=== PATIENT | female | born 1975 | race Caucasian/White ===

== ENCOUNTER 2021-07-26 15:53 | Emergency (ER) | payer OTHER, SELFPAY ==
[2021-07-26 16:10] VITALS: BP 136/76; PULSE 77; RESP 20; TEMP 36.6; O2SAT 100
[2021-07-26 17:05] LABS: Bacteria Urine None Seen; RBC Urine None Seen (0-5/HPF)
[2021-07-26 17:12] LABS: Appearance Urine UA CLEAR; Bilirubin Urine UA NEGATIVE (NEGATIVE); Color Urine UA YELLOW; Glucose Urine UA NEGATIVE (Negative); Ketones Urine UA NEGATIVE (NEGATIVE); Leukocyte Esterase Urine UA TRACE (NEGATIVE); Nitrite Urine UA NEGATIVE (Negative); Occult Blood Urine UA NEGATIVE (Negative); Protein Urine UA NEGATIVE (Negative); Specific Gravity Urine UA <=1.005 (1.000-1.035); Urobilinogen Urine UA 0.2 E.U./dL (0.2)
[2021-07-26 17:23] LABS: Culture Indicated Urine Specimen Cultured; Squamous Epithelial Cell Urine 0-1 /HPF (0-5/HPF); WBC Urine 5-10/HPF (0-5/HPF)
--- NOTE | 2021-07-26 18:35 | ED.FEMALEGU ---
HPI - Female Genitourinary General Chief complaint: Urogenital-Female Stated complaint: UTI Time Seen by Provider: 07/26/21 16:01 Source: patient Mode of arrival: Ambulatory History of Present Illness HPI Narrative: 46-year-old female nonsmoker with noncontributory medical history presents with her in the chief complaint of about 1 week of painful urination with frequency and urgency. She denies any hematuria. She denies vaginal bleeding or discharge. She denies any fever, chills nor nausea or vomiting. She denies any back pain. She has tried drinking lots of water and cranberry juice but symptoms are persisting. She has had urinary tract infections in the past and this feels the same. Related Data Previous Rx's Medication Instructions Recorded cefuroxime axetil 500 mg tablet 500 mg PO BID #10 tab 07/26/21 Allergies Allergy/AdvReac Type Severity Reaction Status Date / Time Sulfa (Sulfonamide Allergy Unknown Unverified 03/05/18 12:35 Antibiotics) [SULFA (SULFONAMIDE ANTIBIOTICS)] Review of Systems Review of Systems Narrative: GENERAL: Denies chills, fatigue, malaise, fever, sweats. HEENT: Denies sinus pain, ear pain, sore throat, difficulty swallowing, dizziness. RESPIRATORY: Denies dyspnea, cough, wheezing, hemoptysis, sputum. CARDIOVASCULAR: Denies chest pain, palpitations, orthopnea, edema, GASTROINTESTINAL: Denies nausea, vomiting, abdominal pain, diarrhea, constipation, melena. : See HPI MUSCULOSKELETAL: denies weakness, joint pain, or bony pain SKIN: Denies rash, skin lesions, or other NEUROLOGIC: Denies weakness, headache, numbness, change in speech, confusion, seizures, incoordination. PSYCHIATRIC: No concerning psychosocial issues. 12 point review of systems is negative except for those stated above Exam Narrative Exam Narrative: GEN: AOx3 and in mild distress EYES: Pupils are equal, round, and reactive to light and accommodation. Extraoccular muscles are intact bilaterally. There is no subconjunctival hemorrhage or exudate. CHEST: Lungs are clear to auscultation bilaterally and free of wheezes, rales, or rhonchi. Heart rate is regular rhythm, there are no murmurs, clicks, rubs, or gallops. There is no chest wall tenderness. ABD: Abdomen is soft and nontender. There is no guarding or rebound. Bowel sounds are normal in all 4 quadrants. There is no mass or organomegaly. EXT: Full painless ROM of all extremities with no loss of sensation or strength. SKIN: Warm, pink, and dry. No erythema or rash Initial Vital Signs Initial Vital Signs: Vital Signs Temperature 97.9 F 07/26/21 16:10 Pulse Rate 77 07/26/21 16:10 Respiratory Rate 20 07/26/21 16:10 Blood Pressure 136/76 07/26/21 16:10 Pulse Oximetry 100 07/26/21 16:10 Course Orders Ordered: ED Orders 07/26/21 16:47 Urinalysis and Microscopic Stat Urine Culture Stat Vital Signs Vital signs: Vital Signs - 8 hr 07/26/21 16:10 07/26/21 18:40 Temperature 97.9 F Pulse Rate 77 77 Respiratory Rate 20 16 Blood Pressure 136/76 125/75 Pulse Oximetry 100 99 MDM - Female Genitourinary Lab Data Labs: Lab Results 07/26/21 Range/Units 16:47 Urine Color Yellow Urine Appearance Clear Urine pH 7.0 (4.5-8.0) Ur Specific [place] <=1.005 (1.000-1.035) Urine Protein Negative (Negative) Urine Glucose (UA) Negative (Negative) g/dL Urine Ketones Negative (NEGATIVE) Urine Occult Blood Negative (Negative) Urine Nitrate Negative (Negative) Urine Bilirubin Negative (NEGATIVE) Urine Urobilinogen 0.2 (0.2) E.U./dL Ur Leukocyte Esterase Trace H (NEGATIVE) Urine RBC None seen (0-5/HPF) Urine WBC 5-10/hpf H (0-5/HPF) Ur Squamous Epith Cells 0-1 /hpf (0-5/HPF) Urine Bacteria None seen (None) Ur Culture Indicated? Specimen cultured Point of Care Testing Test Results Negative Urine Dip Bedside Urine Glucose Negative Bedside Urine Bilirubin - Negative Bedside Urine Ketone - Negative Urine Specific [place] 1.015 Bedside Urine Occult Blood - Negative Bedside Urine pH 6.0 Bedside Urine Protein - Negative Bedside Urine Urobilinogen - Negative Bedside Urine Nitrite - Negative Bedside Urine Leukocytes - Negative Esterase MDM Narrative Medical decision making narrative: Patient with typical UTI symptoms including dysuria, frequency or urgency. Urinalysis is convincing. She shows no signs of sepsis or pyelonephritis. Symptoms are well controlled and patient is appropriate for discharge. She has been given return precautions and questions have been answered to her apparent satisfaction Discharge Plan Departure Patient Disposition: Home Clinical Impression: UTI (urinary tract infection) Qualifiers: Urinary tract infection type: acute cystitis Hematuria presence: without hematuria Qualified Code(s): N30.00 - Acute cystitis without hematuria Instructions: DI for Urinary Tract Infection (UTI) Activity Restrictions/Additional Instructions: *You have been diagnosed with [acute urinary tract infection] *What to do: *Please continue to take your regular medications as directed. [ x] New medication prescriptions sent to your pharmacy: [[facility]] [ ] New medication written as a paper prescription [ ] No new medications given *Please follow up with your primary care provider in 2-3 days, call for an appointment. Let them know you were seen in the Emergency Department and that we ask that you be seen in follow up. We will electronically transmit a record of today's note if your PCP is in our system *If you do not have a primary care provider please contact the [facility] Resource line at [phone]. They will ask some questions about your medical history and help get you set up with a doctor in the community. *Return to Emergency Department if you should have any new, worsening or concerning symptoms, such as [fever greater than 101 F, shaking chills, worsening pain, persistent vomiting or other bothersome symptoms] Prescriptions: New cefuroxime axetil 500 mg tablet 500 mg PO BID Qty: 10 RF: 0
[2021-07-26 18:40] VITALS: BP 125/75; PULSE 77; RESP 16; O2SAT 99
== END 2021-07-26 19:06 | disposition home or self-care (01) ==
PROVIDERS: Physician Assistant; Emergency Provider Emergency Medicine
DX: N30.90 Cystitis, unspecified without hematuria (principal)
CPT/HCPCS: 81001; 81003; 81025; 87077; 87086; 87186; 99282

== ENCOUNTER → 2021-12-07 10:00 | Outpatient (CLI) | payer OTHER, SELFPAY | PROVIDERS: Referring Provider Nurse Practitioner Family; Visit Provider Nurse Practitioner Family | DX: J02.9 Acute pharyngitis, unspecified (principal) | CPT/HCPCS: 87070 ==

== ENCOUNTER 2022-04-24 14:01 | Emergency (ER) | payer BC, OTHER, SELFPAY ==
[2022-04-24 14:25] VITALS: BP 135/66; PULSE 87; RESP 18; TEMP 37; O2SAT 99; BMI 25.7
[2022-04-24 17:17] VITALS: BP 130/70; PULSE 76; RESP 16; O2SAT 99
--- NOTE | 2022-04-24 17:59 | ED.WOUNDLAC ---
HPI - Wound/Laceration General Chief Complaint: Wound/Laceration Stated Complaint: toenail coming off- hit it on table Time Seen by Provider: 04/24/22 17:59 Source: patient Mode of arrival: Ambulatory Related Data Allergies Allergy/AdvReac Type Severity Reaction Status Date / Time Sulfa (Sulfonamide Allergy Severe Swelling Unverified 04/24/22 14:28 Antibiotics) of [SULFA (SULFONAMIDE Lip/Tongue/Throat ANTIBIOTICS)] Patient History Social History Smoking Status: Never smoker Smoking Status: Never smoker alcohol intake frequency: a few times a month Substance Use Type: does not use Exam Initial Vital Signs Initial Vital Signs: Vital Signs Temperature 98.6 F 04/24/22 14:25 Pulse Rate 87 04/24/22 14:25 Respiratory Rate 18 04/24/22 14:25 Blood Pressure 135/66 04/24/22 14:25 Pulse Oximetry 99 04/24/22 14:25 Course Vital Signs Vital signs: Vital Signs - 8 hr 04/24/22 14:25 04/24/22 17:17 Temperature 98.6 F Pulse Rate 87 76 Respiratory Rate 18 16 Blood Pressure 135/66 130/70 Pulse Oximetry 99 99 Discharge Plan Departure Referrals: Miscellaneous,Doctor, [Primary Care Provider] -
--- NOTE | 2022-04-24 18:31 | ED.GENADULT ---
HPI - General Adult General Chief complaint: Wound/Laceration Stated complaint: toenail coming off- hit it on table Time Seen by Provider: 04/24/22 17:59 Source: patient Mode of arrival: Ambulatory History of Present Illness HPI narrative: Otherwise healthy 46-year-old woman who was stepping backward and ended up stubbing her left great toe on the edge of a table and avulsing her toenail. She is having minimal pain. She is not complaining of any difficulty with walking other than in the difficulty with having the toenail pointing almost vertically. Bleeding is controlled. Related Data Previous Rx's Medication Instructions Recorded clotrimazole 1 % topical cream 1 applic TOPICAL BID #45 g 04/24/22 Allergies Allergy/AdvReac Type Severity Reaction Status Date / Time Sulfa (Sulfonamide Allergy Severe Swelling Unverified 04/24/22 14:28 Antibiotics) of [SULFA (SULFONAMIDE Lip/Tongue/Throat ANTIBIOTICS)] Review of Systems Review of Systems Narrative: Pertinent positive and negative findings as per HPI Remainder of review of systems is otherwise unremarkable for Constitutional: Fevers, chills, weakness ENT: No sore throat, neck pain, ear pain CV: Chest pain, palpitations, Respiratory: Cough, wheeze, dyspnea GI: Nausea, vomiting, diarrhea, : Dysuria, hematuria, Patient History Social History Smoking Status: Never smoker Smoking Status: Never smoker alcohol intake frequency: a few times a month Substance Use Type: does not use Exam Initial Vital Signs Initial Vital Signs: Vital Signs Temperature 98.6 F 04/24/22 14:25 Pulse Rate 87 04/24/22 14:25 Respiratory Rate 18 04/24/22 14:25 Blood Pressure 135/66 04/24/22 14:25 Pulse Oximetry 99 04/24/22 14:25 General: Alert appropriate in no acute distress Respiratory: Able to speak in full sentences, no obvious respiratory distress Skin: No obvious rashes, warm and dry Neurologic: Grossly intact no obvious asymmetries or abnormalities Psych: appropriate insight and affect, cooperative Extremity: Left great toenail is mostly avulsed the nail bed itself is intact and non injured. She does have moderate onychomycosis of the affected nail. [place] [facility] [place] Name of Procedure: Nail removal Location: Left great toe Technique/Description of procedure performed: 4 cc of 1% lidocaine without epinephrine was injected around the nail bed with excellent anesthesia obtained. Using needle holders the nail was gently removed in its entirety. The edges of the cuticle were cleaned up and the wound itself is dressed with iodoform gauze and a bandage. She tolerated the procedure very well. Complications: none Course Orders Ordered: Discontinued Medications Lidocaine/Sodium Bicarbonate (Lido 1%/Sod Bicarb 8.4% (10ml) 10 Ml Syringe) 10 ml INJ NOW ONE Stop: 04/24/22 18:31 Last Admin: 04/24/22 18:40 Dose: 10 ml Documented by: Vital Signs Vital signs: Vital Signs - 8 hr 04/24/22 14:25 04/24/22 17:17 Temperature 98.6 F Pulse Rate 87 76 Respiratory Rate 18 16 Blood Pressure 135/66 130/70 Pulse Oximetry 99 99 Medical Decision Making MDM Narrative Medical decision making narrative: 46-year-old woman with accidental great toenail avulsion no injury to nail bed.? Remainder of nail is removed area is dressed. Clinical exam and pain level did not suggest any fractures or dislocation.?Discussed using clotrimazole cream as the nail grows out to avoid recurrent issues with onychomycosis.? Questions were answered she is safe for home discharge Discharge Plan Departure Patient Disposition: Home Clinical Impression: Avulsion of nail plate, Onychomycosis Instructions: DI for Nail Avulsion Injury Activity Restrictions/Additional Instructions: Thank you for coming in today Your nail was pretty much entirely pulled off. With little bit of anesthetic we were able to get the last bit up. It should grow in nicely, does not look like you injured the nail bed itself. You also have a perfect opportunity to help the new nail grew back in free of toenail fungus. All the area is cloth finishing range back tender and looks like in injured area use triple antibiotic ointment. It will soon heal. from that point on as the nail grows out, apply clotrimazole antifungal cream to the nail bed and surrounding tissue at least morning and night. This prescription was electronically transmitted to [facility] in [place] Using 400 mg of ibuprofen (2 vaga-zur-vpubava pills) and 1 Tylenol every 6 hours can be very helpful in controlling pain. If you have any signs of infections for find your getting worse, please feel free to return to the ER. Prescriptions: New clotrimazole 1 % cream 1 applic topical BID Qty: 45 0RF Rx Instructions: to nail bed until nail regrows out Referrals: Miscellaneous,Doctor, MD [Primary Care Provider] -
[2022-04-24] MEDS: LIDO 1%/SOD BICARB 8.4% (10ML) 10 ML SYRINGE INJ (18:40)
[2022-04-24 19:44] VITALS: BP 137/79; PULSE 79; RESP 16; O2SAT 99
== END 2022-04-24 19:45 | disposition home or self-care (01) ==
PROVIDERS: Emergency Provider Emergency Medicine
DX: S91.202A Unspecified open wound of left great toe with damage to nail, initial encounter (principal); B35.1 Tinea unguium; W22.8XXA Striking against or struck by other objects, initial encounter
CPT/HCPCS: 11730; 99282; 99283

== ENCOUNTER → 2023-12-26 12:34 | Outpatient (CLI) | payer BC, OTHER, SELFPAY ==
--- NOTE | 2023-12-26 12:37 | DI.CT.S_ITS ---
PROCEDURE: CT SOFT TISSUE NECK W CON INDICATIONS: Squamous cell carcinoma of skin, unspecified TECHNIQUE: After the administration of intravenous contrast, 3.0 mm axial sections acquired from the sella to the aortic arch. Additional oblique axial 3.0 mm sections acquired through the pharynx. 3 mm thick coronal and sagittal reformats were generated. For radiation dose reduction, the following was used: automated exposure control. COMPARISON: [facility], CT, CT CHEST ABD PEL W CON, 12/26/2023, 13:51. FINDINGS: Image quality: Excellent. Lymph nodes: No enlarged lymph nodes seen throughout the neck. The few borderline prominent lymph nodes can be seen on both sides. Vessels: Visualized vasculature appears patent. Note is made of an aberrant right subclavian artery, which runs posterior to the esophagus. Neck spaces: The oropharynx, nasopharynx, and pharynx demonstrate no mucosal lesions. The vocal cords, false vocal cords, pyriform sinuses, epiglottis, vallecula, and tongue base all appear normal. Extramucosal spaces appear unremarkable. Glands: The parotid and submandibular glands appear normal. Thyroid gland demonstrates no significant abnormality. Miscellaneous: Visualized brain and orbits appear normal. Lung apices appear clear. Superficial soft tissues appear normal. Bones: No suspicious bony lesions. Visualized sinuses and mastoids appear unremarkable. Mild cervical spine degenerative change can be seen. IMPRESSION: No soft tissue masses are seen. No enlarged lymph nodes are seen. Additional findings: Aberrant right subclavian artery Dictated by: Fahad Horton M.D. on 12/26/2023 at 15:39 Approved by: Fahad Horton M.D. on 12/26/2023 at 15:41
--- NOTE | 2023-12-26 12:37 | DI.CT.S_ITS ---
PROCEDURE: CT CHEST ABD PEL W CON INDICATIONS: Squamous cell carcinoma of skin, unspecified TECHNIQUE: After the administration of intravenous contrast, 5 mm thick sections acquired from the lung apices to the symphysis. 5 mm coronal and sagittal reformats were performed, with additional 7 mm MIP reformats through the lungs. For radiation dose reduction, the following was used: automated exposure control, adjustment of mA and/or kV according to patient size. COMPARISON: None. FINDINGS: Image quality: Excellent. CHEST: Lower Neck: No enlarged lymph nodes. Thyroid: No thyroid nodules which require sonographic follow up, per consensus guidelines. Axillae: No enlarged lymph nodes. Chest Wall: Bilateral breast implants are grossly intact. Lungs and Pleura: No pneumothorax or pleural effusions. No consolidation or suspicious nodules. Heart: Heart size is normal. No pericardial effusion. Thoracic Vessels: The aorta and pulmonary arteries demonstrate normal size. Mediastinum and Henna: No enlarged lymph nodes. Esophagus: No wall thickening. No hiatal hernia. ABDOMEN: Liver: No solid mass. Multiple low-density cystic lesions are visualized throughout the liver. Gallbladder: No radiopaque gallstones or wall thickening. Biliary ducts: No biliary dilation. Pancreas: No ductal dilation. Spleen: Size is within normal limits. Adrenal Glands: No adrenal nodules. Kidneys and Ureters: No hydronephrosis. No solid mass. No complex renal cystic lesion which requires follow up. Stomach and Bowel: Normal colonic caliber, without significant wall thickening. The appendix is thin walled and gas filled. Peritoneum: No abnormal intraperitoneal fluid. No free air. Ventral Wall: No significant ventral hernia. Abdominal Nodes: No retroperitoneal or mesenteric adenopathy by size criteria. Vessels: Aorta and inferior vena cava are normal in size. PELVIS: Pelvic Organs: Uterus appears globally enlarged and the endometrium is ill-defined. Bladder: No bladder wall thickening, accounting for underdistention. Pelvic Nodes: No enlarged lymph nodes. Miscellaneous: No inguinal hernias are seen. Bones: No aggressive osseous abnormality. IMPRESSION: 1. No findings to suggest metastatic disease. 2. No acute intra-abdominal findings. Normal. 3. Enlarged uterus with ill-defined endometrium suggesting adenomyosis. If further characterization is warranted, pelvic ultrasound could be used. Dictated by: Valerie Castle M.D. on 12/26/2023 at 14:55 Approved by: Valerie Castle M.D. on 12/26/2023 at 15:04
== END ==
LOC: CT 12:36
PROVIDERS: PCP Registered Nurse Diabetes Educator; Referring Provider Dermatology; Visit Provider Dermatology
DX: C44.529 Squamous cell carcinoma of skin of other part of trunk (principal)
CPT/HCPCS: 70491; 71260; 74177; Q9967

== ENCOUNTER → 2024-02-08 10:24 | Outpatient (CLI) | payer BC, OTHER, SELFPAY ==
[2024-02-08 11:14] LABS: Hematocrit 40.3 % (36-46); Hemoglobin 13.6 g/dL (12.0-16.0); Mean Corpuscular HGB Conc 33.8 % (30-36); Mean Corpuscular Hemoglobin 30.4 PG (26-34); Mean Corpuscular Volume 90.1 fL (80-100); Platelet Count 209 X10^3/uL (150-400); Red Blood Cell Count 4.47 X10^6/uL (4.0-5.2); Red Cell Distribution Width 13.2 % (11.6-14.8); White Blood Cell Count 4.6 X10^3/uL (4.5-11.0)
[2024-02-08 11:48] LABS: Alanine Aminotransferase 26 IU/L (<35); Albumin 3.9 g/dL (3.5-5.0); Albumin Globulin Ratio 1.3 (1.0-2.8); Alkaline Phosphatase 51 U/L (38-126); Aspartate Aminotransferase 25 IU/L (14-36); BUN Creatinine Ratio 16.7 (6-22); Bilirubin Total 0.8 mg/dL (0.2-1.3); Blood Urea Nitrogen 12 mg/dL (7-17); Calcium 9.2 mg/dL (8.4-10.2); Carbon Dioxide 27 mmol/L (22-32); Chloride 108 mmol/L (98-107); Cholesterol 204 mg/dL (140-199); Estimated Glomerular Filt Rate > 60 mL/min (>60); Glucose 91 mg/dL (70-100); HDL Cholesterol 65 mg/dL (40-60); HEMOLYSIS < 15 (0-50); LDL Cholesterol Calculated 124 mg/dL (<100); Potassium 4.3 mmol/L (3.4-5.1); Sodium 139 mmol/L (137-145); Total Protein 6.9 g/dL (6.3-8.2); Triglycerides 74 mg/dL (35-150)
[2024-02-08 12:17] LABS: TSH w/ Reflex to FT4 0.48 uIU/mL (0.47-4.68)
== END ==
PROVIDERS: PCP Registered Nurse Diabetes Educator; Referring Provider Registered Nurse Diabetes Educator; Visit Provider Registered Nurse Diabetes Educator
DX: Z00.00 Encounter for general adult medical examination without abnormal findings (principal)
CPT/HCPCS: 36415; 80053; 80061; 84443; 85027

== ENCOUNTER → 2024-08-03 14:17 | Outpatient (CLI) | payer BC, OTHER, SELFPAY ==
--- NOTE | 2024-08-03 14:18 | DI.US.S_ITS ---
PROCEDURE: US PELVIC COMPLETE INDICATIONS: increased pelvic pain/cramping; abn mens bleeding (daily) TECHNIQUE: Real-time scanning was performed of the pelvic organs, with image documentation. Additional endovaginal scanning was necessary due to incomplete visualization of the adnexal and endometrial structures by transabdominal scanning. COMPARISON: None. FINDINGS: Uterus: Uterus is anteverted and normal in size at 11.4 x 5.7 x 6.6 cm. The myometrium is homogeneous. The endometrium measures 11.1 mm combined thickness. Possible endometrial polyp 1.6 x 0.9 x 1.1 cm. Left anterior intramural fibroid 1.0 x 1.1 x 1.1 cm Ovaries: Both ovaries normal in size, echotexture and vascularity Other: No pathologic free abdominal or pelvic fluid. IMPRESSION: Probable 1.6 cm endometrial polyp. Consider follow-up saline infusion sonogram for confirmation Approved by: Richar Pope M.D. on 08/05/2024 at 12:17
== END ==
LOC: US 14:18
PROVIDERS: PCP Registered Nurse Diabetes Educator; Referring Provider Physician Assistant; Visit Provider Physician Assistant
DX: N92.6 Irregular menstruation, unspecified (principal); D25.1 Intramural leiomyoma of uterus; R10.2 Pelvic and perineal pain
CPT/HCPCS: 76856

== ENCOUNTER 2024-10-12 12:01 | Day surgery (SDC) | payer BC, OTHER, SELFPAY ==
[2024-10-07 09:58] VITALS: BMI 25.3
[2024-10-12] VITALS (7 sets, daily range): BP systolic 117–132; BP diastolic 78–83; PULSE 69–84; RESP 10–16; TEMP 36.2–36.8; O2SAT 97–100; BMI 28.3
--- NOTE | 2024-10-12 | PATH_ITS ---
[facility] Accession Number: [id number] No. of containers..01 Tissue . 01 Material submitted: . endometrium - ENDOMETRIAL CURETTINGS . 01 Diagnosis: ENDOMETRIAL CURETTINGS: Endometrial adenocarcinoma, endometrioid type, favor FIGO grade 1. MRV 10/15/2024 1537 Local . 01 Comment: Dr. Leann Keane left a voice message with Dr. Saunders's clinic phone ([phone]) on 10-15-24 at approximately 3:22 p.m. . As part of routine manufacturing quality technician, this case was also reviewed by Dr. Ainsley Mcneill, who agrees with the interpretation. . 01 Electronically signed: . Leann Keane MD, Pathologist NPI- [id number] . 01 Gross description: . Received in formalin with two patient identifiers and endometrial curettings, are multiple lozada and brown soft tissue fragments aggregating to 3.5 x 2.5 x 0.8 cm. Filtered and submitted in cassette A1. ([id number]) /CAN 10/14/2024 1010 Local . 01 Pathologist provided ICD-10: N84.0 . 01 CPT . 370097 Specimen Comment: A courtesy copy of this report has been sent to [facility] Pathology Performed at: [address] [address], [place], [place] [id number] MD Derick Rodrigues MD Phone: [phone]
[2024-10-12] MEDS: ACETAMINOPHEN 325 MG TABLET 975 MG PO (12:54)
--- NOTE | 2024-10-12 13:16 | PM.PREOP ---
Pre-operative Note Interval Note History & Physical reviewed/Exam performed by Physician: Yes Changes to H&P: No H&P completed within 30 days and has changed as indicated here:: 10/05/24 ASA Class (for procedural sedation): II
--- NOTE | 2024-10-12 16:09 | SUR.OPER ---
Lithotomy on padded OR bed, head on pillow, arms secured on padded arm boards at <90 degrees abduction. Legs secured in padded yellow fins stirrups.
[2024-10-12] MEDS: SILVER NITRATE STICK 2 EACH TOP (16:20)
--- NOTE | 2024-10-12 16:23 | PM.OP.1 ---
Operative Date/Time/Diagnoses Date of procedure: 10/12/24 Time of procedure: 16:23 Pre-op diagnosis: AUB Post-op diagnosis: same Procedure & Clinicians Procedure: hysteroscopy, myosure polypectomy, dilation and curettage Same procedure as scheduled: Yes Indications: AUB, abnormal pelvic US Surgeon: Leslie Saunders Click Yes if Unassisted: Yes Anesthesia Type: General Operative Notes Findings: normal external female genitalia, perineum and anus cervix visually wnl posterior polyp noted in addition to adherent vesicular appearing tissue across anterior aspect of endometrium Specimen(s): other (intrauterine contents (endometrial curettings + myosure fractional resection) sent together ) Estimated Blood Loss (mL): 10 Procedure in detail: Pt was taken to the operating room, transferred to OR table and anesthesia was induced with placement of LMA.? Pt had her legs placed in Luis stirrups and an exam under anesthesia was performed. The patient was prepped and draped in a sterile fashion.? A time out was performed. ?The bladder was emptied via straight catheter in sterile fashion.? A sterile speculum was inserted into the vagina.? The cervix was visualized and grasped anteriorly using a single tooth tenaculum.? The uterus sounded to 10 cm and the cervical os was serially dilated using Cho dilators up to 17f to allow for passage of the hysteroscope.? The 5mm 0 degree hysteroscope was then inserted into the uterus with findings as noted.? The small Myosure device was introduced and the endometrium including visualized pathology was fractionally resected under direct visualization.The hysteroscope was removed and the uterus was sharply curetted until a gritty texture was noted throughout.? The tenaculum was removed and hemostasis was noted at insertion sites.? The speculum was removed and hemostasis was again noted to be excellent.? The patient then had her legs taken out of stirrups.? The patient tolerated the procedure well and without difficulty.? The patient was awakened from anesthesia and taken to PACU in stable condition. ? Complications: none Post-operative Condition: stable Disposition: PACU Plan for aftercare: anticipate dc to home, [email or web address] postop f/u in office vs telehealth per pt preference
--- NOTE | 2024-10-12 16:31 | SUR.OPER ---
125 ML CURRENT DEFICIT 1365 TOTAL FLUID VOLUME COLLECTED 80 MMHG FINAL PRESSURE 40 SECONDS CUTTING TIME
[2024-10-12] MEDS: OXYCODONE IR 5 MG TABLET PO (17:06)
[2024-10-12] MEDS: LACTATED RINGERS 1,000 ML 42 ML IV (17:22)
== END 2024-10-12 17:30 | disposition home or self-care (01) ==
PROVIDERS: PCP Registered Nurse Diabetes Educator; Referring Provider Obstetrics & Gynecology; Visit Provider Obstetrics & Gynecology
PROC: 0UDB8ZZ Extraction of Endometrium, Via Natural or Artificial Opening Endoscopic (ICD-10-PCS; CPT 58558; principal; 2024-10-12 14:45)
DX: C54.1 Malignant neoplasm of endometrium (principal); N84.0 Polyp of corpus uteri
CPT/HCPCS: 58558; 81025; J1100; J1885; J2250; J2405; J2704; J3010

== ENCOUNTER → 2025-04-09 13:23 | Outpatient (CLI) | payer BC, OTHER, SELFPAY ==
--- NOTE | 2025-04-09 13:24 | DI.US.S_ITS ---
PROCEDURE: US PELVIC COMPLETE INDICATIONS: RT SIDE PAIN/EVAL FOR OVARIAN ABNORMALITIES TECHNIQUE: Real-time scanning was performed of the pelvic organs, with image documentation. Additional endovaginal scanning was necessary due to incomplete visualization of the adnexal and endometrial structures by transabdominal scanning. COMPARISON: [facility], , US PELVIC COMPLETE, 08/03/2024, 14:48. FINDINGS: Uterus: Status post hysterectomy Ovaries: The right ovary measures 2.9 x 2.1 x 1.6 cm, with a calculated ovarian volume of 5.1 cc. The left ovary measures 3.8 x 2 x 1.7 cm, with a calculated ovarian volume of 6.7 cc. The ovaries have a normal sonographic appearance. Less than 12 follicles can be seen in each ovary. No adnexal masses are seen. Other: No pathologic free abdominal or pelvic fluid. IMPRESSION: Unremarkable appearance post hysterectomy, no adnexal mass seen. We strive to produce accurate, complete, and clear reports of imaging services. To assist us in improving patient care, this report was composed using standard report templates and voice recognition software. Therefore, it may contain abnormal punctuation, insertions and/or omissions. Occasional wrong-word or sound-alike substitutions may occur. Though we review the report and make efforts to correct it, we do recommend that the report be read carefully in proper context to recognize any text inaccuracies. Dictated by: Burke Nina M.D. on 04/10/2025 at 16:32 Approved by: Burke Nina M.D. on 04/10/2025 at 16:34
== END ==
PROVIDERS: PCP Registered Nurse Diabetes Educator; Referring Provider Obstetrics & Gynecology Gynecologic Oncology; Visit Provider Obstetrics & Gynecology Gynecologic Oncology
DX: C54.1 Malignant neoplasm of endometrium (principal); Z15.01 Genetic susceptibility to malignant neoplasm of breast; Z15.09 Genetic susceptibility to other malignant neoplasm; Z90.710 Acquired absence of both cervix and uterus
CPT/HCPCS: 76830; 76856